=== PATIENT | female | born 1990 | race Caucasian/White ===

== ENCOUNTER 2019-02-09 20:02 | Observation (INO) ==
--- NOTE | 2019-02-09 20:09 | Emergency Department Note ---
Disposition Clinical Impression: Pulmonary emboli Qualifiers: Pulmonary embolism type: other Chronicity: unspecified Acute cor pulmonale presence: without acute cor pulmonale Qualified Code(s): I26.99 - Other pulmonary embolism without acute cor pulmonale Disposition: Admitted As Inpatient Condition: Good Referrals: Kita Villalba CNP [Primary Care Provider] - Time of Disposition: 00:04 General Adult HPI - General Stated complaint: Chest pain Time Seen by Provider: 02/09/19 20:07 Source: patient Mode of arrival: EMS Limitations: no limitations Nursing Notes Reviewed: Yes Vital Signs Reviewed: Yes - History of Present Illness HPI Narrative: Patient is a 28-year-old female presenting with shortness of breath and chest pain. Patient has history of pulmonary embolus diagnosed in September 2018 placed on Eliquis. She has been taking this since September without any recent missed doses. She states that she has had intermittent chest pain since September since the initial diagnosis of pulmonary embolism, this is intermittent in nature. Today she developed increased chest discomfort described to be throughout the entire chest and a heaviness sensation, she also has increased shortness of breath which is different from her usual dyspnea. She states this is worse with any type of exertion. She also reports palpitations throughout today which were worrisome as this was not normal for her. She also has some nausea without vomiting. She denies any vomiting, abdominal pain, urinary symptoms. She denies any lower leg swelling or pain. She is not on estrogen supplementation, she is a nonsmoker, no recent surgery or history of malignancy. - Related Data Home Medications Medication Instructions Recorded Confirmed Amitriptyline [Elavil] 25 mg PO HS 06/23/18 01/25/19 Milnacipran HCl [Savella] 50 mg PO BID 06/23/18 01/25/19 Pregabalin [Lyrica] 150 mg PO BID 06/23/18 01/25/19 Simvastatin [Zocor] 40 mg PO HS 06/23/18 01/25/19 Apixaban [Eliquis] 5 mg PO BID 01/07/19 01/25/19 Acetaminophen/Butalbital/Caffe 1 each PO Q6HR 01/25/19 01/25/19 [Fioricet] Previous Rx's Medication Instructions Recorded Ondansetron ODT [Zofran ODT] 4 mg SL Q6HR #24 tab.rapdis 06/23/18 Promethazine [Phenergan] 25 mg PO Q6HR #20 tablet 01/25/19 Allergies Allergy/AdvReac Type Severity Reaction Status Date / Time ciprofloxacin [From Cipro] Allergy Hives Verified 06/29/18 20:23 Tomato Allergy Rash Verified 06/29/18 20:23 Review of Systems: In addition to that documented in the HPI above, the additional ROS was o btained: General: Denies fever. Denies chills. Denies weight loss. Denies behavioral change. Eyes: Denies visual changes. ENT: Denies nasal congestion. Denies sore throat. Denies hearing change. Cardio: Affirms chest pain. Affirms palpitations. Respiratory: Denies cough. Affirms shortness of breath. Denies wheezing. GI: Denies nausea, Denies vomiting, or diarrhea. Denies hematochezia denies melena. Denies abdominal pain. : Denies dysuria, hematuria, or urinary retention MSK: Denies back pain. Denies joint swelling. Neuro: Denies slurred speech. Denies numbness or tingling. Denies focal weakness. Denies headache. Denies loss of consciousness. Psych: Denies mood changes. All systems ED: reviewed and negative except as stated. Review of Systems: As Per HPI Past Medical History - Past Medical History Attestation: Yes The following information was validated with the patient. Source: patient Medical history: Reports: arthritis, fibromyalgia, GERD, hyperlipidemia, hypertension, migraine Surgical history: Reports: non-contributory, other (Uterine myomectomy) Psychiatric history: Reports: anxiety, bipolar, depression, PTSD, prior suicide attempt [employer]ACH[employer] history: Reports: polycystic ovary syndrome - Social History Smoking Status: Never smoker Smokeless Tobacco Status: No Alcohol use: Reports: none Drug use: Reports: none Physical Exam General: Conversant. No apparent distress. Follow commands. Appears stated age. Neck: No JVD. Trachea midline. Neck supple. Eyes: PERRL. No scleral icterus. HENT: Normocephalic and atraumatic. Moist mucus membranes. Cardiovascular: Regular rate and rhythm. Normal S1 and S2. No murmurs appreciated. Normal capillary refill. Extremities well perfused with 2+ distal pulses bilaterally. No edema. Pulmonary: Normal and equal breath sounds bilaterally, anteriorly and posteriorly. No wheezes, rales, or rhonchi. Not in respiratory distress. Speaks in full sentences. Abdomen: Soft, nondistended, without tenderness. No bruits or masses. No guarding or rebound. Neuro: Alert and oriented x3. No slurred speech. No focal deficits noted. Skin: No rashes noted on visualized skin. Musculoskeletal: No bony abnormalities visualized. Moves all extremities. Psych: Normal mood. Pleasant. Makes appropriate eye contact. Course Vital Signs Temperature 99.1 F 02/09/19 20:17 Pulse Rate 106 02/09/19 20:17 Respiratory Rate 16 02/09/19 20:17 Blood Pressure 154/116 02/09/19 20:17 O2 Sat by Pulse Oximetry 100 02/09/19 20:17 Temperature 99.1 F 02/09/19 20:17 Pulse Rate 108 02/09/19 21:51 Respiratory Rate 16 02/09/19 21:51 Blood Pressure 146/102 02/09/19 21:51 O2 Sat by Pulse Oximetry 100 02/09/19 21:51 Oxygen Delivery Oxygen Delivery Room Air Medical Decision Making - [facility] Narrative Medical decision making narrative: Patient is a 28-year-old female presenting with palpitations and shortness of breath. She has a known history of pulmonary embolism diagnosed in September, subsequently placed on Eliquis. She has had continued chest pain throughout this time, intermittently, however today was worse with associated shortness of breath and palpitations. On evaluation, patient is in no acute distress appears stable and nontoxic, she has normal vital signs other than sinus tachycardia. Concern for pulmonary embolus and, CTA of the chest was performed. Blood work was performed including CBC, BMP as well as troponin which are all within normal limits. EKG shows no ischemic changes. CTA of the chest does show central left upper lobe pulmonary embolus which is mentioned by acute or chronic. There is also mention of a small left lower lobe pulmonary embolism that is nonocclusive and probably chronic. No evidence of right ventricular strain. Patient was started on heparin drip. I did discuss this with the patient and she agrees with admission at this point in time. Patient admitted to Dr. Mendoza at 1203. - Medical Records Medical records reviewed: Yes I reviewed the patient's medical records. - Lab Data Lab results reviewed: Yes I reviewed the patient's lab results. Result diagrams: 02/09/19 23:08 02/09/19 20:47 Lab Results 02/09/19 02/09/19 02/09/19 Range/Units 20:10 20:47 20:47 WBC 7.7 (4.3-11.1) K/mcL RBC 5.01 H (3.82-4.97) M/mcL Hgb 14.9 (11.5-15.4) g/dL Hct 45.2 H (35.3-44.9) % MCV 90.2 (83.0-100.0) fL MCH 29.7 (28.0-33.3) pg MCHC 33.0 (31.6-35.5) g/dL RDW 12.5 (11.5-14.5) % Plt Count 267 (140-400) K/mcL MPV 10.6 (9.4-12.4) fL Immature Gran % 0.4 (0-4) % Seg Neutrophils % 58.2 % Lymphocytes % 32.2 % Monocytes % 6.6 % Eosinophils % 1.7 % Basophils % 0.9 % Neutrophils # 4.5 (1.6-8.9) K/mcL Lymphocytes # 2.5 (0.6-4.6) K/mcL Monocytes # 0.5 (0.0-1.3) K/mcL Eosinophils # 0.1 (0.0-0.6) K/mcL Basophils # 0.1 (0.0-0.2) K/mcL PT (9.4-12.1) Seconds INR APTT (26.0-36.0) Seconds Heparin Anti-Xa, Unfract (0.30-0.70) IU/mL Sodium 137 (136-145) mEq/L Potassium 3.9 (3.5-5.1) mEq/L Chloride 103 (98-107) mEq/L Carbon Dioxide 26 (23-29) mEq/L BUN 7 (6-20) mg/dL Creatinine 0.76 (0.60-1.20) mg/dL Est GFR ( Amer) > 60 (> 60) Est GFR (Non-Af Amer) > 60 (> 60) BUN/Creatinine Ratio 9 (6-26) Glucose 85 (70-105) mg/dL Calculated Osmolality 281 (280-300) Calcium 10.2 (8.6-10.3) mg/dL Troponin I < 0.03 (< 0.04) ng/mL Urine Color Yellow (Yellow) Urine Clarity Clear (Clear) Urine pH 6.0 (5.0-8.0) pH Units Ur Specific [place] 1.010 (1.010-1.025) Urine Protein Negative (Neg-Trace) mg/dL Urine Glucose (UA) Normal (Normal) mg/dL Urine Ketones Negative (Negative) mg/dL Urine Blood Negative (Negative) Urine Nitrite Negative (Negative) Urine Bilirubin Negative (Negative) Urine Urobilinogen Normal (Normal) mg/dL Ur Leukocyte Esterase Small H (Negative) Urine Microscopic RBC 3-5 H (0-3) per hpf Urine Microscopic WBC 15-30 H (0-3) per hpf Ur Squamous Epith Cells Many H (None-Few) per lpf Urine Bacteria None Seen (None-Few) per hpf Hyaline Casts None Seen (None-Few) per lpf Urine Test (Negative) 02/09/19 02/09/19 02/09/19 Range/Units 20:47 21:00 23:08 WBC 7.4 (4.3-11.1) K/mcL RBC 4.87 (3.82-4.97) M/mcL Hgb 14.7 (11.5-15.4) g/dL Hct 44.1 (35.3-44.9) % MCV 90.6 (83.0-100.0) fL MCH 30.2 (28.0-33.3) pg MCHC 33.3 (31.6-35.5) g/dL RDW 12.5 (11.5-14.5) % Plt Count 243 (140-400) K/mcL MPV 10.2 (9.4-12.4) fL Immature Gran % (0-4) % Seg Neutrophils % % Lymphocytes % % Monocytes % % Eosinophils % % Basophils % % Neutrophils # (1.6-8.9) K/mcL Lymphocytes # (0.6-4.6) K/mcL Monocytes # (0.0-1.3) K/mcL Eosinophils # (0.0-0.6) K/mcL Basophils # (0.0-0.2) K/mcL PT 13.1 H (9.4-12.1) Seconds INR 1.2 APTT 35.0 (26.0-36.0) Seconds Heparin Anti-Xa, Unfract (0.30-0.70) IU/mL Sodium (136-145) mEq/L Potassium (3.5-5.1) mEq/L Chloride (98-107) mEq/L Carbon Dioxide (23-29) mEq/L BUN (6-20) mg/dL Creatinine (0.60-1.20) mg/dL Est GFR ( Amer) (> 60) Est GFR (Non-Af Amer) (> 60) BUN/Creatinine Ratio (6-26) Glucose (70-105) mg/dL Calculated Osmolality (280-300) Calcium (8.6-10.3) mg/dL Troponin I (< 0.04) ng/mL Urine Color (Yellow) Urine Clarity (Clear) Urine pH (5.0-8.0) pH Units Ur Specific [place] (1.010-1.025) Urine Protein (Neg-Trace) mg/dL Urine Glucose (UA) (Normal) mg/dL Urine Ketones (Negative) mg/dL Urine Blood (Negative) Urine Nitrite (Negative) Urine Bilirubin (Negative) Urine Urobilinogen (Normal) mg/dL Ur Leukocyte Esterase (Negative) Urine Microscopic RBC (0-3) per hpf Urine Microscopic WBC (0-3) per hpf Ur Squamous Epith Cells (None-Few) per lpf Urine Bacteria (None-Few) per hpf Hyaline Casts (None-Few) per lpf Urine Test Negative (Negative) 02/09/19 Range/Units 23:08 WBC (4.3-11.1) K/mcL RBC (3.82-4.97) M/mcL Hgb (11.5-15.4) g/dL Hct (35.3-44.9) % MCV (83.0-100.0) fL MCH (28.0-33.3) pg MCHC (31.6-35.5) g/dL RDW (11.5-14.5) % Plt Count (140-400) K/mcL MPV (9.4-12.4) fL Immature Gran % (0-4) % Seg Neutrophils % % Lymphocytes % % Monocytes % % Eosinophils % % Basophils % % Neutrophils # (1.6-8.9) K/mcL Lymphocytes # (0.6-4.6) K/mcL Monocytes # (0.0-1.3) K/mcL Eosinophils # (0.0-0.6) K/mcL Basophils # (0.0-0.2) K/mcL PT 12.9 H (9.4-12.1) Seconds INR 1.1 APTT (26.0-36.0) Seconds Heparin Anti-Xa, Unfract 0.10 L (0.30-0.70) IU/mL Sodium (136-145) mEq/L Potassium (3.5-5.1) mEq/L Chloride (98-107) mEq/L Carbon Dioxide (23-29) mEq/L BUN (6-20) mg/dL Creatinine (0.60-1.20) mg/dL Est GFR ( Amer) (> 60) Est GFR (Non-Af Amer) (> 60) BUN/Creatinine Ratio (6-26) Glucose (70-105) mg/dL Calculated Osmolality (280-300) Calcium (8.6-10.3) mg/dL Troponin I (< 0.04) ng/mL Urine Color (Yellow) Urine Clarity (Clear) Urine pH (5.0-8.0) pH Units Ur Specific [place] (1.010-1.025) Urine Protein (Neg-Trace) mg/dL Urine Glucose (UA) (Normal) mg/dL Urine Ketones (Negative) mg/dL Urine Blood (Negative) Urine Nitrite (Negative) Urine Bilirubin (Negative) Urine Urobilinogen (Normal) mg/dL Ur Leukocyte Esterase (Negative) Urine Microscopic RBC (0-3) per hpf Urine Microscopic WBC (0-3) per hpf Ur Squamous Epith Cells (None-Few) per lpf Urine Bacteria (None-Few) per hpf Hyaline Casts (None-Few) per lpf Urine Test (Negative) - Radiology Data Radiology results reviewed: Yes I reviewed the patient's radiology results. Chest CTA 02/09/19 20:20 IMPRESSION: Central left upper lobe pulmonary embolus could either be acute or chronic. The small left lower lobe pulmonary embolus is nonocclusive and is probably chronic. No other emboli are identified and there is no evidence for right ventricular strain. Critical results were called by Dr. Franklin Wong MD to Dr. Adams on 02/09/2019 at 22:57. D/ / Franklin Wong MD / Franklin Wong MD Interpreting Provider: Franklin Wong MD - EKG Data EKG #1 EKG attestation: Yes I reviewed and interpreted this EKG. EKG results narrative: EKG obtained at 2039 with ventricular rate of 111, regular rhythm, normal axis, no ST segment elevation or depression, nonspecific T-wave changes, overall sinus tachycardia. S.B.A.R. - S.B.A.R. Situation: Demographics, MOA Background: Presenting Complaint, Relevant PMH, Meds, & Allergies Assessment: Vital Signs, Course and respsone to treatment, Exam Concerns, Patient/Family Expectation, Pertinant Lab Results, Outstanding Labs Recommendation: Barrier(s) to disposition, Recommendation based on pending studies, treatments, or consults S.B.A.R. Report Given to: Dr. Kelly [email or web address] Repor Time: 00:04 (accepted)
[2019-02-09] MEDS ORDERED: Isovue-370 500 ML BOTTLE IVP ONE (20:20)
[2019-02-09] MEDS ORDERED: 0.9 % Sodium Chloride 1,000 ML IVC ONE (20:21)
[2019-02-09] MEDS ORDERED: Ondansetron 4 MG/2 ML VIAL IVP ONE (20:21)
[2019-02-09 21:20] LABS: Basophils # 0.1 K/mcL (0.0-0.2); Basophils % 0.9 %; Eosinophils # 0.1 K/mcL (0.0-0.6); Eosinophils % 1.7 %; Hematocrit 45.2 % (35.3-44.9); Hemoglobin 14.9 g/dL (11.5-15.4); Immature Granulocytes % 0.4 % (0-4); Lymphocytes # 2.5 K/mcL (0.6-4.6); Lymphocytes % 32.2 %; Mean Corpuscular Hemoglobin 29.7 pg (28.0-33.3); Mean Corpuscular Volume 90.2 fL (83.0-100.0); Mean Platelet Volume 10.6 fL (9.4-12.4); Monocytes # 0.5 K/mcL (0.0-1.3); Monocytes % 6.6 %; Neutrophils # 4.5 K/mcL (1.6-8.9); Platelet Count 267 K/mcL (140-400); Red Blood Count 5.01 M/mcL (3.82-4.97); Red Cell Distribution Width 12.5 % (11.5-14.5); Segmented Neutrophils % 58.2 %; White Blood Count 7.7 K/mcL (4.3-11.1)
[2019-02-09 21:29] LABS: INR 1.2; Prothrombin Time 13.1 Seconds (9.4-12.1)
[2019-02-09 21:42] LABS: BUN/Creatinine Ratio 9 (6-26); Blood Urea Nitrogen 7 mg/dL (6-20); Calcium 10.2 mg/dL (8.6-10.3); Carbon Dioxide 26 mEq/L (23-29); Chloride 103 mEq/L (98-107); Glucose 85 mg/dL (70-105); Osmolality,Calculated 281 (280-300); Potassium 3.9 mEq/L (3.5-5.1); Sodium 137 mEq/L (136-145); Troponin I < 0.03 ng/mL (< 0.04); eGFR For African Americans > 60 (> 60); eGFR For Non-African Americans > 60 (> 60)
[2019-02-09 22:01] LABS: Bilirubin,Urine Negative (Negative); Blood,Urine Negative (Negative); Clarity,Urine Clear (Clear); Color,Urine Yellow (Yellow); Glucose,Urine (UA) Normal (Normal); Ketones,Urine Negative (Negative); Leukocyte Esterase,Urine Small (Negative); Nitrite,Urine Negative (Negative); Protein,Urine Negative (Neg-Trace); Urobilinogen,Urine Normal (Normal)
[2019-02-09 22:02] LABS: Bacteria,Urine None Seen per hpf (None-Few); Hyaline Casts,Urine None Seen per lpf (None-Few); Squamous Epithelial Cell,Urine Many per lpf (None-Few); WBC,Urine 15-30 per hpf (0-3)
[2019-02-09] MEDS ORDERED: *HR* Heparin 5,000 UNIT/ML VIAL IVP ONE (23:08)
[2019-02-09] MEDS ORDERED: *HR* Heparin 5,000 UNIT/ML VIAL IVP PRN ×2 (23:08)
[2019-02-09] MEDS ORDERED: Heparin 25,000 UNIT/250 ML D5W 25,000 UNIT/250 ML IV.SOLN IVC SCH (23:15)
[2019-02-09] MEDS ORDERED: *HR* Promethazine 25 MG/ML VIAL IVP ONE (23:19)
[2019-02-09 23:41] LABS: Hematocrit 44.1 % (35.3-44.9); Hemoglobin 14.7 g/dL (11.5-15.4); Mean Corpuscular HGB Conc 33.3 g/dL (31.6-35.5); Mean Corpuscular Hemoglobin 30.2 pg (28.0-33.3); Mean Corpuscular Volume 90.6 fL (83.0-100.0); Mean Platelet Volume 10.2 fL (9.4-12.4); Platelet Count 243 K/mcL (140-400); Red Blood Count 4.87 M/mcL (3.82-4.97); Red Cell Distribution Width 12.5 % (11.5-14.5); White Blood Count 7.4 K/mcL (4.3-11.1)
[2019-02-09 23:48] LABS: Heparin anti-factor XA UFH 0.1 IU/mL (0.30-0.70); INR 1.1; Prothrombin Time 12.9 Seconds (9.4-12.1)
--- NOTE | 2019-02-09 23:52 | Emergency Department Note ---
Disposition Clinical Impression: Pulmonary emboli Qualifiers: Pulmonary embolism type: other Chronicity: unspecified Acute cor pulmonale presence: without acute cor pulmonale Qualified Code(s): I26.99 - Other pulmonary embolism without acute cor pulmonale Disposition: Admitted As Inpatient Condition: Good Referrals: Kita Villalba CNP [Primary Care Provider] - Time of Disposition: 00:04 General Adult HPI - General Chief complaint: ED Chest Pain Stated complaint: Chest pain Time Seen by Provider: 02/09/19 20:07 Source: patient Mode of arrival: EMS Limitations: no limitations Nursing Notes Reviewed: Yes Vital Signs Reviewed: Yes - History of Present Illness Pain Scale: 7 - Related Data Home Medications Medication Instructions Recorded Confirmed Amitriptyline [Elavil] 25 mg PO HS 06/23/18 01/25/19 Milnacipran HCl [Savella] 50 mg PO BID 06/23/18 01/25/19 Pregabalin [Lyrica] 150 mg PO BID 06/23/18 01/25/19 Simvastatin [Zocor] 40 mg PO HS 06/23/18 01/25/19 Apixaban [Eliquis] 5 mg PO BID 01/07/19 01/25/19 Acetaminophen/Butalbital/Caffe 1 each PO Q6HR 01/25/19 01/25/19 [Fioricet] Previous Rx's Medication Instructions Recorded Ondansetron ODT [Zofran ODT] 4 mg SL Q6HR #24 tab.rapdis 06/23/18 Promethazine [Phenergan] 25 mg PO Q6HR #20 tablet 01/25/19 Allergies Allergy/AdvReac Type Severity Reaction Status Date / Time ciprofloxacin [From Cipro] Allergy Hives Verified 06/29/18 20:23 Tomato Allergy Rash Verified 06/29/18 20:23 Past Medical History - Past Medical History Medical history: Reports: arthritis, fibromyalgia, GERD, hyperlipidemia, hyperte nsion, migraine, pulmonary embolus Surgical history: Reports: non-contributory, other (Uterine myomectomy) Psychiatric history: Reports: anxiety, bipolar, depression, PTSD, prior suicide attempt CHECKING CLERK history: Reports: polycystic ovary syndrome - Social History Smoking Status: Never smoker Smokeless Tobacco Status: No Alcohol use: Reports: none Drug use: Reports: none Physical Exam - General Limitations: no limitations General appearance: alert, in no apparent distress Course Vital Signs Temperature 99.1 F 02/09/19 20:17 Pulse Rate 106 02/09/19 20:17 Respiratory Rate 16 02/09/19 20:17 Blood Pressure 154/116 02/09/19 20:17 O2 Sat by Pulse Oximetry 100 02/09/19 20:17 Temperature 99.1 F 02/09/19 20:17 Pulse Rate 108 02/09/19 21:51 Respiratory Rate 16 02/09/19 21:51 Blood Pressure 146/102 02/09/19 21:51 O2 Sat by Pulse Oximetry 100 02/09/19 21:51 Oxygen Delivery Oxygen Delivery Room Air Medical Decision Making - Medical Records Medical records reviewed: Yes I reviewed the patient's medical records. - Lab Data Lab results reviewed: Yes I reviewed the patient's lab results. Result diagrams: 02/09/19 23:08 02/09/19 20:47 Lab Results 02/09/19 02/09/19 02/09/19 Range/Units 20:10 20:47 20:47 WBC 7.7 (4.3-11.1) K/mcL RBC 5.01 H (3.82-4.97) M/mcL Hgb 14.9 (11.5-15.4) g/dL Hct 45.2 H (35.3-44.9) % MCV 90.2 (83.0-100.0) fL MCH 29.7 (28.0-33.3) pg MCHC 33.0 (31.6-35.5) g/dL RDW 12.5 (11.5-14.5) % Plt Count 267 (140-400) K/mcL MPV 10.6 (9.4-12.4) fL Immature Gran % 0.4 (0-4) % Seg Neutrophils % 58.2 % Lymphocytes % 32.2 % Monocytes % 6.6 % Eosinophils % 1.7 % Basophils % 0.9 % Neutrophils # 4.5 (1.6-8.9) K/mcL Lymphocytes # 2.5 (0.6-4.6) K/mcL Monocytes # 0.5 (0.0-1.3) K/mcL Eosinophils # 0.1 (0.0-0.6) K/mcL Basophils # 0.1 (0.0-0.2) K/mcL PT (9.4-12.1) Seconds INR APTT (26.0-36.0) Seconds Heparin Anti-Xa, Unfract (0.30-0.70) IU/mL Sodium 137 (136-145) mEq/L Potassium 3.9 (3.5-5.1) mEq/L Chloride 103 (98-107) mEq/L Carbon Dioxide 26 (23-29) mEq/L BUN 7 (6-20) mg/dL Creatinine 0.76 (0.60-1.20) mg/dL Est GFR ( Amer) > 60 (> 60) Est GFR (Non-Af Amer) > 60 (> 60) BUN/Creatinine Ratio 9 (6-26) Glucose 85 (70-105) mg/dL Calculated Osmolality 281 (280-300) Calcium 10.2 (8.6-10.3) mg/dL Troponin I < 0.03 (< 0.04) ng/mL Urine Color Yellow (Yellow) Urine Clarity Clear (Clear) Urine pH 6.0 (5.0-8.0) pH Units Ur Specific [place] 1.010 (1.010-1.025) Urine Protein Negative (Neg-Trace) mg/dL Urine Glucose (UA) Normal (Normal) mg/dL Urine Ketones Negative (Negative) mg/dL Urine Blood Negative (Negative) Urine Nitrite Negative (Negative) Urine Bilirubin Negative (Negative) Urine Urobilinogen Normal (Normal) mg/dL Ur Leukocyte Esterase Small H (Negative) Urine Microscopic RBC 3-5 H (0-3) per hpf Urine Microscopic WBC 15-30 H (0-3) per hpf Ur Squamous Epith Cells Many H (None-Few) per lpf Urine Bacteria None Seen (None-Few) per hpf Hyaline Casts None Seen (None-Few) per lpf Urine Test (Negative) 02/09/19 02/09/19 02/09/19 Range/Units 20:47 21:00 23:08 WBC 7.4 (4.3-11.1) K/mcL RBC 4.87 (3.82-4.97) M/mcL Hgb 14.7 (11.5-15.4) g/dL Hct 44.1 (35.3-44.9) % MCV 90.6 (83.0-100.0) fL MCH 30.2 (28.0-33.3) pg MCHC 33.3 (31.6-35.5) g/dL RDW 12.5 (11.5-14.5) % Plt Count 243 (140-400) K/mcL MPV 10.2 (9.4-12.4) fL Immature Gran % (0-4) % Seg Neutrophils % % Lymphocytes % % Monocytes % % Eosinophils % % Basophils % % Neutrophils # (1.6-8.9) K/mcL Lymphocytes # (0.6-4.6) K/mcL Monocytes # (0.0-1.3) K/mcL Eosinophils # (0.0-0.6) K/mcL Basophils # (0.0-0.2) K/mcL PT 13.1 H (9.4-12.1) Seconds INR 1.2 APTT 35.0 (26.0-36.0) Seconds Heparin Anti-Xa, Unfract (0.30-0.70) IU/mL Sodium (136-145) mEq/L Potassium (3.5-5.1) mEq/L Chloride (98-107) mEq/L Carbon Dioxide (23-29) mEq/L BUN (6-20) mg/dL Creatinine (0.60-1.20) mg/dL Est GFR ( Amer) (> 60) Est GFR (Non-Af Amer) (> 60) BUN/Creatinine Ratio (6-26) Glucose (70-105) mg/dL Calculated Osmolality (280-300) Calcium (8.6-10.3) mg/dL Troponin I (< 0.04) ng/mL Urine Color (Yellow) Urine Clarity (Clear) Urine pH (5.0-8.0) pH Units Ur Specific [place] (1.010-1.025) Urine Protein (Neg-Trace) mg/dL Urine Glucose (UA) (Normal) mg/dL Urine Ketones (Negative) mg/dL Urine Blood (Negative) Urine Nitrite (Negative) Urine Bilirubin (Negative) Urine Urobilinogen (Normal) mg/dL Ur Leukocyte Esterase (Negative) Urine Microscopic RBC (0-3) per hpf Urine Microscopic WBC (0-3) per hpf Ur Squamous Epith Cells (None-Few) per lpf Urine Bacteria (None-Few) per hpf Hyaline Casts (None-Few) per lpf Urine Test Negative (Negative) 02/09/19 Range/Units 23:08 WBC (4.3-11.1) K/mcL RBC (3.82-4.97) M/mcL Hgb (11.5-15.4) g/dL Hct (35.3-44.9) % MCV (83.0-100.0) fL MCH (28.0-33.3) pg MCHC (31.6-35.5) g/dL RDW (11.5-14.5) % Plt Count (140-400) K/mcL MPV (9.4-12.4) fL Immature Gran % (0-4) % Seg Neutrophils % % Lymphocytes % % Monocytes % % Eosinophils % % Basophils % % Neutrophils # (1.6-8.9) K/mcL Lymphocytes # (0.6-4.6) K/mcL Monocytes # (0.0-1.3) K/mcL Eosinophils # (0.0-0.6) K/mcL Basophils # (0.0-0.2) K/mcL PT 12.9 H (9.4-12.1) Seconds INR 1.1 APTT (26.0-36.0) Seconds Heparin Anti-Xa, Unfract 0.10 L (0.30-0.70) IU/mL Sodium (136-145) mEq/L Potassium (3.5-5.1) mEq/L Chloride (98-107) mEq/L Carbon Dioxide (23-29) mEq/L BUN (6-20) mg/dL Creatinine (0.60-1.20) mg/dL Est GFR ( Amer) (> 60) Est GFR (Non-Af Amer) (> 60) BUN/Creatinine Ratio (6-26) Glucose (70-105) mg/dL Calculated Osmolality (280-300) Calcium (8.6-10.3) mg/dL Troponin I (< 0.04) ng/mL Urine Color (Yellow) Urine Clarity (Clear) Urine pH (5.0-8.0) pH Units Ur Specific [place] (1.010-1.025) Urine Protein (Neg-Trace) mg/dL Urine Glucose (UA) (Normal) mg/dL Urine Ketones (Negative) mg/dL Urine Blood (Negative) Urine Nitrite (Negative) Urine Bilirubin (Negative) Urine Urobilinogen (Normal) mg/dL Ur Leukocyte Esterase (Negative) Urine Microscopic RBC (0-3) per hpf Urine Microscopic WBC (0-3) per hpf Ur Squamous Epith Cells (None-Few) per lpf Urine Bacteria (None-Few) per hpf Hyaline Casts (None-Few) per lpf Urine Test (Negative) - Radiology Data Radiology results reviewed: Yes I reviewed the patient's radiology results. Chest CTA 02/09/19 20:20 IMPRESSION: Central left upper lobe pulmonary embolus could either be acute or chronic. The small left lower lobe pulmonary embolus is nonocclusive and is probably chronic. No other emboli are identified and there is no evidence for right ventricular strain. Critical results were called by Dr. Franklin Wong MD to Dr. Adams on 02/09/2019 at 22:57. D/ / Franklin Wong MD / Franklin Wong MD Interpreting Provider: Franklin Wong MD - EKG Data EKG #1 EKG attestation: Yes I reviewed and interpreted this EKG. EKG results narrative: EKG shows sinus tachycardia with ventricular rate of 111. No significant ST segment elevation or depression. No ectopy. Otherwise normal EKG. Critical Care Time Critical Care Time: Yes Total Critical Care Time: 45 Attestation: Critical care performed: Time is exclusive of separately billable procedures. Time includes: direct patient care, patient reassessment, coordination of patient care, interpretation of data (laboratory data, radiology data, and respiratory data), review of patient's medical records, medical consultation and documentation of patient care. Procedures included in critical care time: Procedures excluded from critical care time: Attestation Statement - Attestation Attestation: ITony MD, personally evaluated this patient and discussed their management with the resident physician. I reviewed the resident's note and agree with the documented findings, medical decision making, and plan of care. I reviewed the residents documentation and agree with the residents assessment and plan of care. I have personally had face to face time with the patient. I personally supervised and was present for the ventura/critical portions of the following procedures completed by the resident: EKG interpretation. 28-year-old female presents to the emergency department from a local urgent care for evaluation of chest pain. Patient however states the chest pain is chronic and she went to the urgent care because since 10 AM this morning she has had palpitations and feeling like her heart is racing. Also some increased short of breath. She also does have chest pain. The chest pain is diffuse and sharp at times with intermittent dull aching discomfort. Patient has history of being diagnosed with a pulmonary embolism in September at another facility. She states that she has had these chest pains ever since she was diagnosed with the PE in September. She did have a follow-up CTA in October and states that they told her the blood clots were gone. She is currently on Eliquis. No cough or fever. No pain or swelling or redness in the legs. No abdominal pain. There was no known etiology for her PE in September. She states that these symptoms feel similar to when she was diagnosed with a PE. On examination patient is a well-developed obese female in no acute distress. She is alert and oriented 3. There is no cyanosis or diaphoresis. Chest is nontender to palpation. Breath sounds are clear and equal bilaterally. Heart regular with a mild tachycardia. Abdomen soft and nontender with normal bowel sounds. No pedal edema. EKG shows sinus tachycardia with ventricular rate of 111. No significant ST segment elevation or depression. No ectopy. Otherwise normal EKG. Labs reviewed and unremarkable. CTA of the chest did show a PE in the left lower lobe which appears to be chronic. There is also evidence of pulmonary embolism in the left upper lobe pulmonary artery which the radiologist's stated could be acute or chronic as there is no comparison study. He did state that the study was of good quality and repeating the images would not be of any benefit. Patient was started on heparin. The hospitalist, Dr. Mendoza, was consulted and accepted admission of the patient.
--- NOTE | 2019-02-10 02:24 | Internal Med History&Physical ---
Date of Encounter: 02/10/19 Time of Encounter: 02:22 Internal Medicine - H&P: HPI Chief complaint: Shortness of breath History of present illness: Ms. Gracia is a 28 year old female with a past medical history of obesity, hypertension, hyperlipidemia, PCOS and previous PE who presented to the ED with complaints of palpitations. Patient reports that she went to urgent care this morning around 10 AM because of feelings that her heart was racing. She also noticed some shortness of breath and chest pain. He described as diffuse. Patient diagnosed with a PE earlier in September at another facility noting a similar presentation of her chest pain when she had the PE. Patient was placed on anticoagulation with Eliquis. CTA follow-up in October showing resolution of the blood clot. She is currently taking Eliquis and reports compliance with medication. Chest pain described as pressure-like and worse with deep inspiration. Denies any lower extremity swelling. She did recently travel to [place] 2 weeks ago by car. She states that she would stop every hour and get out and walk as instructed by her PCP. Denies any recent surgery. No history of cancer. Patient is not on any oral contraceptive medication. Patient reports no family history of blood clots. Patient has had 2 prior miscarriages. Family history of bone, lung and breast cancer. On arrival patient was hypertensive with a blood pressure of 154/116 and heart rate of 106. She was saturating 100% on room air. Remainder of her laboratory workup was Normal. EKG shows sinus tachycardia with ventricular rate of 111. No significant ST segment elevation or depression. CTA of the chest did show a PE in the left lower lobe which appears to be chronic. There is also evidence of pulmonary embolism in the left upper lobe pulmonary artery which the radiologist's stated could be acute or chronic as there is no comparison study. On my assessment patient was lying in bed in no acute distress. She still complaining of some chest discomfort. Past Med Surg Social Fam HX - Past Medical History Medical history: arthritis, fibromyalgia, GERD, hyperlipidemia, migraine, pulmonary embolus Additional medical history: PCOS Psychiatric history: anxiety, bipolar, depression, PTSD, prior suicide attempt - Past Surgical History Surgical History: non-contributory, other (Uterine myomectomy) Additional surgical history: SCOPIC EXAM LT KNEE 2014. Fibroid tumor 2011 - Social History Smoking Status: Never smoker Smokeless Tobacco Status: No Alcohol use: none Drug use: none - Family History Mother Hx Family Cardiac Disorders: Yes Internal Medicine - H&P: Meds Amitriptyline [Elavil] 25 mg PO HS 06/23/18 [History] Milnacipran HCl [Savella] 50 mg PO BID 06/23/18 [History] Ondansetron ODT [Zofran ODT] 4 mg SL Q6HR #24 tab.rapdis 06/23/18 [Rx] Pregabalin [Lyrica] 150 mg PO BID 06/23/18 [History] Simvastatin [Zocor] 40 mg PO HS 06/23/18 [History] Apixaban [Eliquis] 5 mg PO BID 01/07/19 [History] Acetaminophen/Butalbital/Caffe [Fioricet] 1 each PO Q6HR 01/25/19 [History] 3 Allergy/AdvReac Type Severity Reaction Status Date / Time ciprofloxacin [From Cipro] Allergy Hives Verified 06/29/18 20:23 Tomato Allergy Rash Verified 06/29/18 20:23 All Systems PM: A 10-system review of systems was performed and is negative for pertinent findin gs except as documented above in the HPI. - Constitutional Constitutional: no chills, no fever(s), no night sweats - EENT Eyes: no change in vision, no discharge, no pain, no photophobia Ears: no ear discharge, no ear pain, no tinnitus Nose, mouth and throat: no dysphagia, no nasal discharge, no neck pain, no sore throat - Cardiovascular Cardiovascular ROS IM: no chest pain, no diaphoresis, no dyspnea, no lightheadedness, no palpitations, no syncope - Respiratory Respiratory: no cough, no dyspnea, no wheezing, no excessive phlegm production - Gastrointestinal Gastrointestinal: no abdominal pain, no diarrhea, no hematemesis, no hematochezia, no melena, no nausea, no vomiting - Genitourinary Genitourinary: no change in urinary stream, no dysuria, no flank pain, no hematuria - Musculoskeletal Musculoskeletal ROS IM: no numbness, no tingling - Integumentary Integumentary IM: no rash, no unusual bruising - Neurological Neurological ROS: no confusion, no convulsions, no focal weakness, no numbness, no tingling, no tremor(s) - Hematologic/Lymphatic Hematologic/Lymphatic: no easy bruising - Constitutional Vitals: Temp Pulse Resp BP Pulse Ox 98.1 F 99 16 136/76 97 02/10/19 01:24 02/10/19 01:24 02/10/19 01:24 02/10/19 01:24 02/10/19 01:24 Exam: General: Alert and oriented 3 lying in bed in no acute distress Skin:Normal color, no rash, no lesions. Has significant hair growth on the forearms and lower chin. HEENT:EOM, pupils equal, round and reactive. Cardiovascular:Normal S1 & S2, no rubs, murmurs or gallops. No JVD. Pulse regular. Lungs:Normal breath sounds, no wheezes or crackles. Abdomen:Soft, non-tender, no rigidity. Extremities:No deformity, no edema or tenderness, no joint swelling or clubbing. Neurological:Normal cognition and motor skills. Pulses:Carotid and radial pulses normal +2. Rest of the physical exam is non contributory Internal Med - H&P Results - Labs CBC & Chem 7: 02/09/19 23:08 02/09/19 20:47 Labs: Short CBC 02/09/19 02/09/19 Range/Units 20:47 23:08 WBC 7.7 7.4 (4.3-11.1) K/mcL Hgb 14.9 14.7 (11.5-15.4) g/dL Hct 45.2 H 44.1 (35.3-44.9) % Plt Count 267 243 (140-400) K/mcL Neutrophils # 4.5 (1.6-8.9) K/mcL BMP 02/09/19 20:47 Sodium 137 Potassium 3.9 Chloride 103 Carbon Dioxide 26 BUN 7 Creatinine 0.76 Glucose 85 Calcium 10.2 Cardiac Enzymes 02/09/19 Range/Units 20:47 Troponin I < 0.03 (< 0.04) ng/mL Urine 02/09/19 Range/Units 20:10 Urine Color Yellow (Yellow) Urine Clarity Clear (Clear) Urine pH 6.0 (5.0-8.0) pH Units Ur Specific [place] 1.010 (1.010-1.025) Urine Protein Negative (Neg-Trace) mg/dL Urine Glucose (UA) Normal (Normal) mg/dL - Impressions ITS Impressions Chest CTA 02/09/19 20:20 IMPRESSION: Central left upper lobe pulmonary embolus could either be acute or chronic. The small left lower lobe pulmonary embolus is nonocclusive and is probably chronic. No other emboli are identified and there is no evidence for right ventricular strain. Critical results were called by Dr. Franklin Wong MD to Dr. Adams on 02/09/2019 at 22:57. D/ / Franklin Wong MD / Franklin Wong MD Interpreting Provider: Franklin Wong MD - Assessment and Plan (1) Pulmonary emboli Current Visit: Yes Status: Acute Assessment and plan: Patient presented with pleuritic chest pain, shortness of breath and palpitations similar in presentation to prior PE event in September. Patient currently on Eliquis. CTA scan of the chest showing central left upper lobe pulmonary embolus which could be either acute or chronic. A small left lower lobe pulmonary embolus is nonocclusive and is probably chronic. No evidence of right heart strain on EKG. Patient does not appear to have any obvious risk factors for PE. She is not on oral contraceptive medication despite her history of polycystic ovarian syndrome with notable evidence of hirsutism. Concern for unprovoked PE and possible underlying hypercoagulable state given history of multiple miscarriages. Her APTT is not elevated. Patient will likely need hypercoagulable workup. -Continue heparin drip -We will obtain echocardiogram in the morning for further evaluation of right heart strain. -Lupus anticoagulant panel; hypercoagulable workup -We will consult hematology Qualifiers: Pulmonary embolism type: other Chronicity: unspecified Acute cor pulmonale presence: without acute cor pulmonale Qualified Code(s): I26.99 - Other pulmonary embolism without acute cor pulmonale (2) Dyspnea Current Visit: Yes Status: Acute Assessment and plan: Patient presenting with mild dyspnea likely secondary to PE. Currently saturating well on room air. Continue heparin for now and monitor. Qualifiers: Dyspnea type: shortness of breath Qualified Code(s): R06.02 - Shortness of breath; R06.00 - Dyspnea, unspecified; R06.01 - Orthopnea (3) Chest pain Current Visit: Yes Status: Acute Assessment and plan: Patient reporting chest pain described as pressure-like and pleuritic. Likely secondary to PE. Initial troponin was negative. -We will trend troponin -NSAIDs for chest pain. Qualifiers: Chest pain type: unspecified Qualified Code(s): R07.9 - Chest pain, unspecified (4) DVT prophylaxis Current Visit: Yes Status: Acute - Time Spent With Patient Total time spent is greater than 50% in coordination of care (as documented) at patient's floor/unit and/or counseling patient:
[2019-02-10] MEDS ORDERED: Ibuprofen 400 MG TABLET PO PRN (02:55)
[2019-02-10] MEDS ORDERED: Naloxone 0.4 MG/ML INJ IVP PRN (02:55)
[2019-02-10] MEDS: Acetaminophen/Butalbital/CaffeineTABLET PO SCH ×2 (05:13→13:10)
[2019-02-10] MEDS: Ondansetron ODT 4 MG TAB.RAPDIS SL SCH ×2 (05:13→13:06)
[2019-02-10] MEDS ORDERED: Pregabalin 75 MG CAPSULE PO SCH (09:00)
[2019-02-10] MEDS ORDERED: (Milnacipran Hcl [Savella] 50 MG) PO SCH (09:00)
--- NOTE | 2019-02-10 10:05 | Discharge Summary ---
- NOTES TO OUTPATIENT PROVIDER Notes to Outpatient Provider: PT/INR in 3 days and follow-up in anticoagulation clinic. Continue Lovenox until INR therapeutic. Follow up with Hematology as outpatient. Orders not resulted at time of discharge: Pending orders 02/10/19 03:02 EV echocardiogram Routine 02/10/19 03:23 APC Resistance Profile Stat Lupus Anticoagulant Panel Routine Protein C, Functional Stat Protein S, Functional Stat Prothrombin [id number] Mutation Stat 02/10/19 12:40 Heparin anti-factor XA UFH [COAG] Timed Date of Encounter: 02/10/19 Time of Encounter: 08:00 - Discharge Diagnosis (1) Pulmonary emboli Priority: Primary Status: Acute Qualifiers: Pulmonary embolism type: other Chronicity: unspecified Acute cor pulmonale presence: without acute cor pulmonale Qualified Code(s): I26.99 - Other pulmonary embolism without acute cor pulmonale (2) Dyspnea Priority: Secondary Status: Acute Qualifiers: Dyspnea type: shortness of breath Qualified Code(s): R06.02 - Shortness of breath; R06.00 - Dyspnea, unspecified; R06.01 - Orthopnea (3) Chest pain Priority: Secondary Status: Acute Qualifiers: Chest pain type: unspecified Qualified Code(s): R07.9 - Chest pain, unspecified (4) DVT prophylaxis Priority: Secondary Status: Acute Hospital course: Ms. 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 She reports that her repeat CTA after the event in 09/2018 was told to be clear of embolism. Initially tachycardic but resolved with IV heparin. Saturating well on room air. After speaking to Dr. De Oliveira from hematology over the phone, the decision was made to discharge her on Coumadin with Lovenox bridging. INR in 3 days and follow up with Hematology and anticoagulation clinic. Discharge discussed with: patient, nurse, business info consultant - Time Spent with Patient Total time spent providing and/or coordinating discharge services: 28 mins - Discharge Medications Prescriptions: New Warfarin [Coumadin] 7.5 mg PO 1800 #30 tablet Enoxaparin [Lovenox] 120 mg SQ Q12HR 7 Days #14 syr Continued Simvastatin [Zocor] 40 mg PO HS Milnacipran HCl [Savella] 50 mg PO BID Amitriptyline [Elavil] 25 mg PO HS Pregabalin [Lyrica] 150 mg PO BID Ondansetron ODT [Zofran ODT] 4 mg SL Q6HR #24 tab.rapdis Acetaminophen/Butalbital/Caffe [Fioricet] 1 each PO Q6HR Discontinued Apixaban [Eliquis] 5 mg PO BID Home Medications: Amitriptyline [Elavil] 25 mg PO HS 06/23/18 [History] Milnacipran HCl [Savella] 50 mg PO BID 06/23/18 [History] Ondansetron ODT [Zofran ODT] 4 mg SL Q6HR #24 tab.rapdis 06/23/18 [Rx] Pregabalin [Lyrica] 150 mg PO BID 06/23/18 [History] Simvastatin [Zocor] 40 mg PO HS 06/23/18 [History] Acetaminophen/Butalbital/Caffe [Fioricet] 1 each PO Q6HR 01/25/19 [History] Enoxaparin [Lovenox] 120 mg SQ Q12HR 7 Days #14 syr 02/10/19 [Rx] Warfarin [Coumadin] 7.5 mg PO 1800 #30 tablet 02/10/19 [Rx] Allergies/Adverse Reactions: Allergy/AdvReac Type Severity Reaction Status Date / Time ciprofloxacin [From Cipro] Allergy Hives Verified 06/29/18 20:23 Tomato Allergy Rash Verified 06/29/18 20:23 Date of admission: 02/10/19 00:33 Primary care physician: Kita Villalba - Constitutional Vitals: Temp Pulse Resp BP Pulse Ox 97.9 F 89 16 132/76 94 02/10/19 07:27 02/10/19 07:27 02/10/19 07:27 02/10/19 07:27 02/10/19 04:01 Exam: General: Alert and oriented 3 lying in bed in no acute distress Cardiovascular:Normal S1 & S2, no rubs, murmurs or gallops. No JVD. Pulse regular. Lungs:Normal breath sounds, no wheezes or crackles. Abdomen:Soft, non-tender, no rigidity. Extremities:No deformity, no edema or tenderness, no joint swelling or clubbing. Neurological:Normal cognition and motor skills. - Patient Status Disposition: Home, Self-Care Condition: Good Functional capacity at discharge: independent ambulation Overall status at discharge: patient is progressing back to baseline - Ambulatory Orders Ambulatory Orders: Prothrombin Time INR [COAG] Time Frame: 3 Days, Facility: [facility], Location: [facility] - Discharge Instructions Instructions: Pulmonary Embolism (DC) Follow Up With: Kita Villalba CNP [Primary Care Provider] - Eliana De Oliveira MD [Partnered Physician] - Forms: ED Satisfaction Letter - Diet and Activity Activity: resume usual activities as tolerated Diet: regular diet
[2019-02-10 11:23] VITALS: BP 155/96
[2019-02-10] MEDS ORDERED: Perflutren Lipid Microsphere 1.3 ML in 0.9 % Sodium Chloride 8.7 ML IVP ONE (13:09)
[2019-02-10] MEDS ORDERED: Perflutren Lipid Microsphere 2 ML VIAL ONE (13:47)
[2019-02-10] MEDS ORDERED: *HR* Warfarin 7.5 MG TABLET PO ONE (15:00)
[2019-02-10] MEDS ORDERED: *HR* Enoxaparin 30 MG/0.3 ML SYRINGE SQ ONE (15:00)
[2019-02-10] MEDS ORDERED: *HR* Enoxaparin 120 MG/0.8 ML SYRINGE SQ ONE (15:15)
--- NOTE | 2019-02-10 21:37 | Electrocardiograph Report ---
[place] [id number] Test Date: 2019-02-09 Pat Name: Liyah Gracia Department: [id number] Room: 2N8 Gender: F [employer]: : 1990 Requested By: Ravinder Jauregui Order Number: [id number] Reading MD: Roque Heller Measurements Intervals [place] Rate: 111 P: 41 ID: [id number] QRS: 57 QRSD: 103 T: 3 QT: 337 QTc: 458 Interpretive Statements Sinus tachycardia Electronically Signed On 02-10-2019 21:35:38 EDT by Roque Heller
[2019-02-11 17:15] LABS: APTT (LE Anticoag) >150 sec (32-48); Diluted Russell Viper Venom 34 sec (33-44); LE APTT D Heparin Neutralized 42 sec (32-48); LE Coag Reptilase Time 19.1 sec (<=21.9); PT (LE-Anticoag) 14.3 sec (12.0-15.5); Thrombin Time >150.0 sec (14.7-19.5)
[2019-02-13 15:26] LABS: Prothrombin G20210A Specimen WHOLE BLOOD
[2019-02-13 15:31] LABS: Prothrombin G20210A Mut Result NEGATIVE
== END 2019-02-10 15:46 | disposition home or self-care (01) ==
LOC: EMEROOARM 20:02 → 2NENU 20:02 → SUATTDRO 02-10 00:33 → 2NENU 02-10 01:07
PROVIDERS: ADMIT Internal Medicine; ATTEND Internal Medicine